=== PATIENT | female | born 1985 | race African-American/Black ===

== ENCOUNTER 2016-11-29 11:17 | Emergency (ER) | payer OTHER ==
[~2016-11-29] VITALS: Ht 165.1 cm; Wt 68.9 kg
[~2016-11-29 11:17] MED LIST: DIFLUCAN150 MG PO; LIORESAL 10MG T10 MG PO; METROGEL0.751 VG; MOTRIN 600 MG600 MG PO; NAPROXEN500 MG PO; NUVARING1 ICR VG; SUMATRIPTAN SUC50 MG; ULTRAM(MONOGRAP50 MG PO; [UNRECOGNIZED DRUG - OTHER]
[2016-11-29 11:22] VITALS: BP 113/73
--- NOTE | 2016-11-29 11:36 | ED ANIMAL BITE/WOUND CHECK ---
History of Present Illness General Chief Complaint: Suture Removal/Wound Recheck Stated Complaint: SUTURE REMOVAL Source: patient Exam Limitations: no limitations Vital Signs & Intake/Output Vital Signs & Intake/Output Vital Signs Date Time Temp Pulse Resp B/P B/P Pulse O2 O2 Flow FiO2 Mean Ox Delivery Rate 11/29 1122 97.3 80 16 113/73 97 Room Air Allergies Coded Allergies: NO KNOWN ALLERGIES (04/28/14) Triage Note: PT HERE FOR SUTURE REMOVAL ABD. Triage Nurses Notes Reviewed? yes Onset: Last week Duration: day(s): Timing: recent history Is Injury an Animal Bite? No : No Patient currently breastfeeds: No HPI: 31-year-old female presents emergency department requesting suture removal. Patient states that she had liposuction surgery in [place] on 11/22 and was told by her surgeon to have her laparoscopic sutures removed in 7 days. She states she has [address] in her lower abdomen currently. She denies pain at suture sites, redness, fevers, chills, drainage from wound, abdominal pain. She states that she had a postop visit in [place] prior to returning to [place] where she resides. (FLORIN KING PA-C) Past History Travel History Traveled to [facility] past 21 day No Medical History Any Pertinent Medical History? 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 No (FLORIN KING PA-C) Review of Systems Review of Systems Constitutional: Reports: no symptoms. EENTM: Reports: no symptoms. Respiratory: Reports: no symptoms. Cardiovascular: Reports: no symptoms. GI: Reports: no symptoms. Genitourinary: Reports: no symptoms. Musculoskeletal: Reports: no symptoms. Skin: Reports: see HPI. Neurological/Psychological: Reports: no symptoms. Hematologic/Endocrine: Reports: no symptoms. Immunologic/Allergic: Reports: no symptoms. All Other Systems: Reviewed and Negative (FLORIN KING PA-C) Physical Exam Physical Exam General Appearance: well developed/nourished, no apparent distress, alert, awake Comments: Well-developed well-nourished patient in no apparent distress. HEENT: Atraumatic, extraocular motion intact Neck: Supple, FROM Back: FROM Respiratory: No respiratory distress. Patient speaking in full complete sentences. Abdomen: Soft, nontender, nondistended, 3 post-surgical laproscopic healing wounds <1cm in length with single suture Extremities: full range of motion Neuro: awake, alert, and oriented to person, place and time. There were no obvious focal neurologic abnormalities. Skin: Warm & dry;No appreciable rash on exposed skin, 3 healing wounds s/p surgery as described above Psych: Mood affect normal, normal memory normal judgment. (FLORIN KING PA-C) Progress Differential Diagnosis: abscess, cellulitis, laceration, peritonitis Plan of Care: The patient is in no acute distress, she is well-appearing. SHe is not complaining of any abdominal pain. Postsurgical laparoscopic wounds appear well healed. Sutures removed without complication. Skin appears closed sufficiently following suture removal. There were no signs of infection on physical exam. Patient is not complaining of any pain. The patient will follow up with her primary care doctor who she states is local in [place]. She will return if any symptoms or concerns. (FLORIN KING PA-C) Departure Departure Disposition: HOME OR SELF CARE Condition: Stable Clinical Impression Primary Impression: Visit for suture removal Referrals: UNKNOWN (PCP/Family) Additional Instructions: Monitor for signs of infection including fevers, chills, redness, swelling, increased pain. Follow up with YOUR primary care doctor. Return with any worsening symptoms or concerns or signs of infection as discussed. Departure Forms: Customer Survey General Discharge Information (FLORIN KIGN PA-C) PA/INVESTMENT STRATEGIST Co-Sign Statement Statement: ED Attending supervision documentation- [] I saw and evaluated the patient. I have also reviewed all the pertinent lab results and diagnostic results. I agree with the findings and the plan of care as documented in the PA's/INVESTMENT STRATEGIST's documentation. [X] I have reviewed the ED Record and agree with the PA's/INVESTMENT STRATEGIST's documentation. [] Additions or exceptions (if any) to the PAs/INVESTMENT STRATEGIST's note and plan are summarized below: [] (KAEL SCHMITT,ALEC Cadena)
== END 2016-11-29 11:38 ==
LOC: ERH 11:17
DX: Z48.02 Encounter for removal of sutures (principal)
CPT/HCPCS: 99281